=== PATIENT | female | born 2000 | race American Indian/Alaskan Native ===

== ENCOUNTER 2022-05-07 11:14 | Inpatient (IN) ==
[2022-05-07] MEDS ORDERED: Lactated Ringers 1000 ml BAG 1,000 ML IV ONE ×2 (13:18→17:23)
[2022-05-07] MEDS ORDERED: Buffered Lidocaine 1% SYRIN 1 ml INTRADERM ONE (13:18)
[2022-05-07] MEDS ORDERED: Oxytocin in LR 20,000 MILLI.UNIT/1,000 ML BAG IV SCH (13:30)
[2022-05-07 13:33] LABS: ABS Eosinophils 0.2 10^3/ul (0-0.6); ABS Lymphocytes 1.3 10^3/ul (1.0-4.8); ABS Monocytes 0.8 10^3/ul (0-0.8); ABS Neutrophils 12.1 10^3/ul (1.5-7.7); Eosinophil % 1.1 %; Hematocrit 37 % (35-47); Hemoglobin 11.9 g/dL (12.0-16.0); Lymphocyte % 8.8 %; Mean Corpuscular HGB Conc 33 g/dL (31-36); Mean Corpuscular Hemoglobin 29 pg (27-31); Mean Corpuscular Volume 89 fL (80-97); Mean Platelet Volume 11.3 fL (7.4-10.4); Nucleated Red Blood Cells % 0.1; Platelet Count 217 10^3/uL (150-450); Red Blood Count 4.09 10^6 /uL (3.70-4.87); Red Cell Distribution Width 16 % (10-15); White Blood Count 14.4 10^3/uL (3.5-10.8)
[2022-05-07 13:55] LABS: Urine Benzodiazepine Screen None Detected (None Detect); Urine Cannabinoids Screen None Detected (None Detect); Urine Opiates Screen None Detected (None Detect)
[2022-05-07] MEDS ORDERED: Lactated Ringers 1000 ml BAG 1,000 ML IV SCH ×3 (14:00→18:00)
[2022-05-07] MEDS ORDERED: OBEPIDURAL (200 ML) 200 ML EPIDURAL ONE ×2 (15:46→21:07)
[2022-05-07] MEDS ORDERED: Lidocaine 2% w/ EPI 1:200,000 MPF 20 ML SDV VIAL ONE (15:46)
[2022-05-07] MEDS ORDERED: Bupivacaine 0.25% SDV PF 10 ML VIAL INJ ONE ×2 (15:48→23:51)
[2022-05-07] MEDS ORDERED: fentaNYL 100 mcg/2 ml 50 MCG/ML VIAL ONE ×2 (15:48→23:50)
[2022-05-07 17:14] LABS: Urine Appearance Clear; Urine Bilirubin Negative (Negative); Urine Color Yellow; Urine Glucose Negative (Negative); Urine Ketones 2+ (40mg/dL) (Negative)
[2022-05-07 17:15] LABS: Urine Blood 3+ (Large) (Negative); Urine Nitrite Negative (Negative); Urine Protein 2+ (100 mg/dL) (Negative); Urine Urobilinogen 0.2 (Negative) (Negative)
[2022-05-07 17:18] LABS: Urine Bacteria 1+ (Absent); Urine Red Blood Cell 3+(>10/hpf) (Absent); Urine Squamous Epithelial Cell Present (Absent); Urine White Blood Cell Trace(0-5/hpf) (Absent)
[2022-05-07] MEDS ORDERED: Lactated Ringers 1000 ml BAG 500 ML IV PRN (17:23)
[2022-05-07] MEDS ORDERED: Phenylephrine 40 mcg/mL 10mL (400mcg) SYRINGE IV PUSH PRN ×2 (17:23)
[2022-05-07] MEDS ORDERED: Lactated Ringers 500 ml BAG 500 ML IV PRN (17:34)
[2022-05-07] MEDS ORDERED: OBEPIDURAL (200 ML) 200 ML EPIDURAL SCH ×2 (18:00)
[2022-05-07 20:31] LABS: ABS Lymphocytes 1.3 10^3/ul (1.0-4.8); ABS Monocytes 0.9 10^3/ul (0-0.8); ABS Neutrophils 10.8 10^3/ul (1.5-7.7); Eosinophil % 0.2 %; Hematocrit 33 % (35-47); Hemoglobin 10.5 g/dL (12.0-16.0); Mean Corpuscular HGB Conc 32 g/dL (31-36); Mean Corpuscular Hemoglobin 29 pg (27-31); Mean Corpuscular Volume 89 fL (80-97); Mean Platelet Volume 10.4 fL (7.4-10.4); Platelet Count 182 10^3/uL (150-450); Red Blood Count 3.68 10^6 /uL (3.70-4.87); Red Cell Distribution Width 16 % (10-15); White Blood Count 13.1 10^3/uL (3.5-10.8)
[2022-05-07] MEDS: Ampicillin ADVAN 2 GM in NS 0.9% 100 ml BAG 100 ML IVPB SCH (21:02)
[2022-05-07] MEDS: Clindamycin 900 MG/D5W BAG 900 MG/50 ML BAG IVPB SCH (21:39)
[2022-05-07] MEDS: GENTAMICIN ADULT IVPB SCH (22:47)
[2022-05-07] MEDS: NS 0.9% IVPB SCH (22:47)
[2022-05-08] MEDS ORDERED: Morphine PF AMP (0.5MG/ML) 5 MG/10 ML AMP ONE (00:15)
[2022-05-08] MEDS ORDERED: Ondansetron 4 mg VIAL 2 MG/ML 2 ml VIAL ONE (00:16)
[2022-05-08] MEDS ORDERED: Metoclopramide 5 MG/ML VIAL (10 mg) ONE (00:16)
[2022-05-08] MEDS ORDERED: Succinylcholine 200 mg VIAL 20 mg/ml 10 ml VIAL (200 mg) ONE (00:16)
[2022-05-08] MEDS ORDERED: Dexamethasone IV 4 MG/ML VIAL 1 ml VIAL ONE (00:16)
[2022-05-08] MEDS ORDERED: Propofol 10 MG/ML 20 ML BTL ONE (00:16)
[2022-05-08] MEDS: Ampicillin ADVAN 2 GM in NS 0.9% 100 ml BAG 100 ML IVPB SCH ×4 (02:49→21:56)
[2022-05-08] MEDS: Clindamycin 900 MG/D5W BAG 900 MG/50 ML BAG IVPB SCH ×3 (04:46→20:54)
[2022-05-08] MEDS ORDERED: Sodium Citrate/Citric Acid LIQ 15 ML UDC ONE (07:21)
[2022-05-08] MEDS ORDERED: Lidocaine 2% w/ EPI 1:200,000 MPF 20 ML SDV VIAL ONE ×2 (07:23→07:35)
[2022-05-08] MEDS ORDERED: Chloroprocaine 3% 20 ml VIAL ONE (07:37)
[2022-05-08] MEDS ORDERED: fentaNYL 100 mcg/2 ml 50 MCG/ML VIAL ONE (07:38)
[2022-05-08] MEDS ORDERED: Oxytocin 10 UNITS/ML 1 ML VIAL ONE (08:33)
[2022-05-08] MEDS ORDERED: Phenylephrine IV 10 MG/ML 1 ml VIAL ONE (08:42)
[2022-05-08] MEDS ORDERED: Phenylephrine 40 mcg/mL 10mL (400mcg) SYRINGE ONE ×2 (08:42→14:20)
[2022-05-08] MEDS ORDERED: Witch Hazel PAD JAR TOPICAL PRN (09:27)
[2022-05-08] MEDS ORDERED: Glycerin ADULT 2.4 gm SUPP PR PRN (09:27)
[2022-05-08] MEDS ORDERED: Dibucaine 1% OINT 28.35 GM TUBE PR PRN (09:27)
[2022-05-08] MEDS ORDERED: Oxytocin in LR 20,000 MILLI.UNIT/1,000 ML BAG IV SCH (09:30)
[2022-05-08] MEDS ORDERED: Naloxone 0.4 mg VIAL 0.4 mg/ml 1 ml VIAL IV PRN ×3 (09:41→10:19)
[2022-05-08] MEDS ORDERED: Ondansetron 4 mg VIAL 2 MG/ML 2 ml VIAL IV PRN ×2 (09:41→09:55)
[2022-05-08] MEDS ORDERED: Lactated Ringers 1000 ml BAG 1,000 ML IV ONE (09:44)
[2022-05-08] MEDS ORDERED: Sodium Citrate/Citric Acid LIQ 15 ML UDC PO PRN (09:44)
[2022-05-08] MEDS ORDERED: Lactated Ringers 1000 ml BAG 1,000 ML IV SCH ×2 (10:00)
[2022-05-08] MEDS ORDERED: LoraTADine 10 mg TAB (NF) PO PRN (16:18)
[2022-05-08] MEDS: GENTAMICIN ADULT IVPB SCH (22:42)
[2022-05-08] MEDS: NS 0.9% IVPB SCH (22:42)
[2022-05-09] MEDS: Ampicillin ADVAN 2 GM in NS 0.9% 100 ml BAG 100 ML IVPB SCH (04:56)
[2022-05-09] MEDS: Clindamycin 900 MG/D5W BAG 900 MG/50 ML BAG IVPB SCH (05:35)
[2022-05-09 06:11] LABS: ABS Eosinophils 0.4 10^3/ul (0-0.6); ABS Monocytes 0.8 10^3/ul (0-0.8); ABS Neutrophils 11.7 10^3/ul (1.5-7.7); Eosinophil % 2.9 %; Hematocrit 25 % (35-47); Hemoglobin 8.4 g/dL (12.0-16.0); Lymphocyte % 13.3 %; Mean Corpuscular HGB Conc 33 g/dL (31-36); Mean Corpuscular Hemoglobin 30 pg (27-31); Mean Corpuscular Volume 89 fL (80-97); Mean Platelet Volume 9.2 fL (7.4-10.4); Platelet Count 231 10^3/uL (150-450); Red Blood Count 2.82 10^6 /uL (3.70-4.87); Red Cell Distribution Width 16 % (10-15); White Blood Count 14.9 10^3/uL (3.5-10.8)
[2022-05-11 07:47] VITALS: BP 110/84
== END 2022-05-11 13:55 | disposition home or self-care (01) | DRG 786 ==
LOC: MCHOBOUT 11:14 → MCHOB 13:22
PROVIDERS: ADMIT Obstetrics & Gynecology; ATTEND Obstetrics & Gynecology